=== PATIENT | female | born 1960 | race Native Hawaiian/Other Pacific Islander ===

== ENCOUNTER 2019-11-04 17:14 | Outpatient (CLI) | payer BC ==
[2019-11-04 17:56] LABS: PLATELET COUNT 229 K/uL (152-353)
[2019-11-04 18:06] LABS: POTASSIUM 3.4 mmol/L (3.6-5.2)
== END 2019-11-04 20:51 | disposition home or self-care (01) ==
LOC: LABW 17:14
PROVIDERS: Podiatrist
DX: Z01.810 Encounter for preprocedural cardiovascular examination (principal); Z01.811 Encounter for preprocedural respiratory examination; Z01.812 Encounter for preprocedural laboratory examination
CPT/HCPCS: 36415; 80053; 85002; 85027; 93005

== ENCOUNTER 2020-08-10 13:33 | Outpatient (CLI) | payer BC | END 2020-08-10 20:14 | disposition home or self-care (01) | LOC: RAD 13:33 | DX: M54.2 Cervicalgia (principal) ==

== ENCOUNTER 2020-08-18 10:19 | Outpatient (CLI) | payer BC | END 2020-08-18 23:13 | disposition home or self-care (01) | LOC: RAD 10:19 → MRI 10:19 | DX: M54.12 Radiculopathy, cervical region (principal); M54.2 Cervicalgia; M25.511 Pain in right shoulder; R20.2 Paresthesia of skin ==